=== PATIENT | female | born 1960 | race Caucasian/White ===

== ENCOUNTER 2019-06-16 08:56 | Day surgery (SDC) | payer MEDICAID ==
[~2019-06-16 08:56] MED LIST: Bupivacaine 0.25% 10 ML SDV ONE; Povidone-Iodine 10% Soln 118.25 ML Bottle ONE
[2019-06-16] MEDS ORDERED: ceFAZolin 2 GM in Premix Bag 1 BAG IV ONE (09:30)
[2019-06-16] MEDS ORDERED: Lactated Ringers 1,000 ML IV SCH (09:30)
[2019-06-16] MEDS: Nozin Nasal Sanitizer NASBOTH SCH ×2 (09:54→22:12)
[2019-06-16] MEDS ORDERED: Midazolam 1 MG/ML 2 ML SDV ONE (10:14)
[2019-06-16] MEDS ORDERED: fentaNYL 100 MCG/2 ML SDV ONE (10:14)
[2019-06-16] MEDS ORDERED: Propofol 200 MG/20 ML SDV ONE ×2 (10:14→13:39)
[2019-06-16] MEDS ORDERED: Magnesium Hydroxide 400 MG/5 ML Susp 30 ML Cup PO PRN (14:49)
[2019-06-16] MEDS ORDERED: Acetaminophen 325 MG Tab PO PRN (14:49)
[2019-06-16] MEDS ORDERED: Morphine 2 MG/ML SYRINGE IVPUSH PRN (14:49)
[2019-06-16] MEDS ORDERED: Acetaminophen/HYDROcodone 325-5 MG Tab PO PRN (14:49)
[2019-06-16] MEDS ORDERED: LORazepam 0.5 MG Tab PO PRN (14:56)
[2019-06-16] MEDS ORDERED: Lactated Ringers 1,000 ML ONE (14:57)
--- NOTE | 2019-06-16 15:54 | CR ---
Knee 1V or 2V Rt CLINICAL HISTORY: Postop FINDINGS: Patient has a lateral hemiprosthesis. Components appear well seated. There is intra-articular and subcutaneous air. Impression: Patient is status post hemiprosthesis in the lateral compartment
[2019-06-16] MEDS: Nicotine 14 MG/24 Hr Patch TRDERM SCH (16:37)
[2019-06-16] MEDS: Ketorolac 30 MG/ML SDV IVPUSH SCH ×2 (16:38→23:28)
[2019-06-16] MEDS: Acetaminophen/oxyCODONE 325-5 MG Tab PO PRN (17:10)
[2019-06-16] MEDS: Sodium Chloride 0.9% 1,000 ML IV SCH (18:07)
[2019-06-16] MEDS: ceFAZolin 1 GM in Premix Bag 1 BAG IV SCH (18:10)
[2019-06-16] MEDS ORDERED: atorvaSTATin 20 MG Tab PO SCH (21:00)
[2019-06-17] MEDS: Sodium Chloride 0.9% 1,000 ML IV SCH (02:26)
[2019-06-17] MEDS: ceFAZolin 1 GM in Premix Bag 1 BAG IV SCH ×2 (02:28→10:03)
[2019-06-17] MEDS: Ketorolac 30 MG/ML SDV IVPUSH SCH ×2 (07:29→16:25)
[2019-06-17] MEDS: Nozin Nasal Sanitizer NASBOTH SCH (08:53)
[2019-06-17] MEDS: Nicotine 14 MG/24 Hr Patch TRDERM SCH (08:54)
[2019-06-17] MEDS ORDERED: Aspirin 81 MG Tab.EC PO SCH (09:00)
[2019-06-17] MEDS ORDERED: amLODIPine 10 MG Tab PO SCH (09:00)
[2019-06-17] MEDS: Acetaminophen/oxyCODONE 325-5 MG Tab PO PRN ×2 (09:08→14:35)
[2019-06-18] MEDS ORDERED: atorvaSTATin 20 MG Tab PO SCH (09:00)
--- NOTE | 2019-06-25 18:20 | OR ---
DATE OF PROCEDURE: 06/16/2019 SURGEON: Hemant Camacho MD PREOPERATIVE DIAGNOSIS: Osteoarthritis, lateral compartment, right knee. POSTOPERATIVE DIAGNOSIS: Osteoarthritis, lateral compartment, right knee. PROCEDURE PERFORMED: Lateral unicompartmental arthroplasty, right knee, using ZUK components. ANESTHESIA: Spinal with sedation. INDICATIONS: Kady is a 58-year-old female who has been having progressive pain and valgus deformity of the right knee for the past 2 years. She previously sustained a work-related injury resulting in a partial lateral meniscectomy. Since that time, she has had progressive pain in the lateral aspect of the knee and valgus collapse. She now shows complete [id number] collapse in the lateral compartment with preservation of the patellofemoral and medial compartments. She now presents for a lateral unicompartmental arthroplasty. Risks, benefits, potential complications of the procedure were discussed. DESCRIPTION OF PROCEDURE: After adequate anesthesia was obtained, the patient was placed supine with a tourniquet about the right upper thigh. Right leg was prepped and draped in a sterile fashion. Leg was exsanguinated and tourniquet inflated to 300 mmHg. A longitudinal incision was made over the anterior aspect of the knee from the tibial tubercle to the superior pole of the patella. This was carried down to subcutaneous tissues. A lateral parapatellar arthrotomy was then performed. This was extended up into the quadriceps tendon enough to allow mobilization of the patella medially. Evaluation of the lateral compartment revealed a complete articular cartilage loss on the femoral condyle and bone-on- bone articulation with the tibia. The anterior horn of the lateral meniscus was excised and a small lip of bone was removed from the anterior tibia with an oscillating saw. The leg was extended and the extramedullary alignment jig was placed. This was aligned and then secured to the femur and tibia. Distal femoral cut was then made. This portion of the jig was removed and the knee was flexed, and the proximal tibia was resected with a combination of oscillating and reciprocating saws. The remainder of the jig was removed. The remnant of the lateral meniscus was then excised. The majority of the midbody and posterior horn were already absent. The femur was sized and the appropriate cutting jig was secured. The peg holes were drilled and remaining cuts were then made. Trial femoral component was placed with excellent fit. The tibia was sized, appropriate tibial tray was secured, and peg holes were drilled. Trial reduction was done with tibial inserts. Good balance was obtained in both flexion and extension. The trials were removed. The knee was then thoroughly irrigated with the pulse lavage. The bone surfaces were dried and components were cemented in place. Excess cement was removed. The knee was held in full extension with a trial insert and the spacer until the cement cured. The knee was again taken through range of motion and flexion and extension gaps evaluated. Approximately 2 mm of gap was present in both. The trial was removed. Knee was irrigated once again and the final polyethylene was snapped into position. The knee was then irrigated with a dilute Betadine solution followed by the pulse lavage. Knee was then closed with 0 Vicryl in a running fashion laterally. Skin was closed with 2-0 Vicryl and a running 3-0 Monocryl. Steri-Strips were applied. Light compressive dressing was then placed. The patient tolerated procedure very well, there were no complications, taken from the operating room in stable condition. Hemant Camacho MD /[id number] UBALDO
--- NOTE | 2019-07-16 11:11 | PCM.DCSUM1 ---
Discharge Summary - Hospital Course Free Text/Narrative:: 58 year old female admitted for right knee lateral unicompartmental arthroplasty Diagnosis: Stroke: No Modified [place] Scale: No Symptoms at All Modified [place] Scale Score: 0 - Discharge Data Discharge Date: 06/17/19 Discharge Disposition: Home, Self-Care 01 Condition: Good - Referral to Home Health Date of Face to Face Encounter: 06/17/19 Primary Care Physician: Ankit Sidhu MD - Discharge Diagnosis/Problem(s) (1) Status post right unicompartmental knee replacement SNOMED Code(s): 169605632, [id number], [id number], [id number] ICD Code: Z96.651 - PRESENCE OF RIGHT ARTIFICIAL KNEE JOINT Status: Acute Problem Details: lateral compartment (2) Osteoarthritis of right knee SNOMED Code(s): 992741347225153 ICD Code: M17.11 - UNILATERAL PRIMARY OSTEOARTHRITIS, RIGHT KNEE Status: Acute Qualifiers: Osteoarthritis type: post-traumatic - Patient Summary/Data Operative Procedure(s) Performed: Right knee lateral unicompartmental arthroplasty Consults: Consultations 06/16/19 14:50 Consult to Case Management/[employer] [CONS] Routine Comment: Physician Instructions: Service(s) to be Consulted: Case Management Reason for Consult: Plan for Discharge PT Evaluation and Treatment [CONS] Routine Please Evaluate and Treat. PT Reason for Consult: Post op Ortho Surgery Special Instructions: Ambulation and ROM This query below is only for informational purposes and is not editable. PT Evaluation and Treatment [CONS] Routine Please Evaluate and Treat. PT Reason for Consult: Post op Ortho Surgery Knee Pending Discharge: Yes, 1- 2 days Special Instructions: Schedule first outpatient PT appointment in 3-5 day post discharge. This query below is only for informational purposes and is not editable. Hospital Course: Tolerated surgery without complication, some difficulty with pain control initially but did well POD #1 and was able to progress well with PT on po medications. Was up in [place] and independent with walking and was safe for discharge to home. Aspirin at home for DVT prophylaxis. PT near home and follow up in two weeks. - Patient Instructions Diet: Usual Diet as Tolerated Activity: Apply Ice, As Tolerated, Full Weight Bearing Driving: Do Not Drive Showering/Bathing: May Shower Wound/Incision Care: Keep Operative Site/Wound Site Clean and Dry Notify Provider of: Fever, Increased Pain, Swelling and Redness, Drainage, Nausea and/or Vomiting - Discharge Plan *PRESCRIPTION DRUG MONITORING PROGRAM REVIEWED*: No *COPY OF PRESCRIPTION DRUG MONITORING REPORT IN PATIENT MATTHEW: No Prescriptions/Med Rec: oxyCODONE HCl/Acetaminophen [Oxycodone-Acetaminophen 5-325] 1 each PO Q4HR PRN # 40 tablet PRN Reason: Pain Home Medications: Home Meds Aspirin [Halfprin] 81 mg PO DAILY 07/31/18 [History] LORazepam 0.5 mg PO BID PRN 07/31/18 [History] amLODIPine Besylate [Amlodipine Besylate] 10 mg PO DAILY 07/31/18 [History] Naproxen [Naprosyn] 500 mg PO Q12HR PRN 30 Days #60 tab 12/16/18 [Rx] traMADol [Ultram] 50 mg PO Q6H PRN #28 tab 04/28/19 [Rx] Nicotine [Nicotine Patch] 1 each TD DAILY 06/16/19 [History] atorvaSTATin [Lipitor] 20 mg PO DAILY 06/16/19 [History] oxyCODONE HCl/Acetaminophen [Oxycodone-Acetaminophen 5-325] 1 each PO Q4HR PRN # 40 tablet 06/17/19 [Rx] traMADol [Ultram] 50 mg PO Q6H PRN 7 Days #28 tab 07/03/19 [Rx] Oxygen Therapy Mode: Room Air Patient Handouts: Knee Rehabilitation in the Home Referrals: Hemant Camacho MD [Physician] - 07/01/19 10:45 am ([facility]) - Discharge Summary/Plan Comment DC Time >30 min.: No - General Info Functional Status: Reports: Pain Controlled, Tolerating Diet, Ambulating, Urinating - Review of Systems General: Reports: No Symptoms HEENT: Reports: No Symptoms Pulmonary: Reports: No Symptoms Cardiovascular: Reports: No Symptoms Gastrointestinal: Reports: No Symptoms Genitourinary: Reports: No Symptoms Musculoskeletal: Reports: Joint Swelling Skin: Reports: No Symptoms Neurological: Reports: No Symptoms Psychiatric: Reports: No Symptoms - Patient Data Vitals - Most Recent: Last Vital Signs Temp 36.9 C 06/17/19 15:00 Pulse 83 06/17/19 15:00 Resp 18 06/17/19 15:00 BP 152/67 H 06/17/19 15:00 Pulse Ox 92 L 06/17/19 15:00 Weight - Most Recent: 58.967 kg Med Orders - Current: Current Medications Discontinued Medications Acetaminophen (Tylenol) 650 mg PO Q4H PRN PRN Reason: Pain/Fever Hydrocodone Bitart/Acetaminophen ([place] 325-5 Mg) 1 tab PO Q3H PRN PRN Reason: Pain (mild 1-3) Amlodipine Besylate (Norvasc) 10 mg PO DAILY [facility] Last Admin: 06/17/19 08:53 Dose: 10 mg Aspirin (Halfprin) 81 mg PO DAILY [facility] Last Admin: 06/17/19 08:52 Dose: 81 mg Atorvastatin Calcium (Lipitor) 20 mg PO BEDTIME [facility] Last Admin: 06/16/19 22:13 Dose: 20 mg Atorvastatin Calcium (Lipitor) 20 mg PO DAILY [facility] Bandage/Support Products ( Nasal [employer]) 1 applic NASBOTH BID [facility] Last Admin: 06/17/19 08:53 Dose: 1 applic Bupivacaine HCl (Sensorcaine-Mpf 0.25%) Confirm Administered Dose 10 ml .ROUTE .STK-MED ONE Stop: 06/16/19 06:43 Fentanyl (Sublimaze) Confirm Administered Dose 100 mcg .ROUTE .STK-MED ONE Stop: 06/16/19 10:15 Cefazolin Sodium/Dextrose 2 gm (/ Premix) 50 mls @ 100 mls/hr IV ONETIME ONE Stop: 06/16/19 09:59 Last Admin: 06/16/19 12:19 Dose: 100 mls/hr Lactated Ringer's (Ringers, Lactated) 1,000 mls @ 75 mls/hr IV ASDIRECTED [facility] Last Admin: 06/16/19 09:55 Dose: 75 mls/hr Cefazolin Sodium/Dextrose 1 gm (/ Premix) 50 mls @ 200 mls/hr IV Q8H [facility] Stop: 06/17/19 10:14 Last Admin: 06/17/19 10:03 Dose: 200 mls/hr Sodium Chloride (Normal Saline) 1,000 mls @ 125 mls/hr IV ASDIRECTED [facility] Last Admin: 06/17/19 02:26 Dose: 125 mls/hr Lactated Ringer's (Ringers, Lactated) Confirm Administered Dose 1,000 mls @ as directed .ROUTE .STK-MED ONE Stop: 06/16/19 14:58 Ketorolac Tromethamine (Toradol) 15 mg IVPUSH Q8H [facility] Stop: 06/17/19 16:01 Last Admin: 06/17/19 16:25 Dose: 15 mg Lorazepam (Ativan) 0.5 mg PO BID PRN PRN Reason: Anxiety Magnesium Hydroxide (Milk Of Magnesia) 30 ml PO BID PRN PRN Reason: Constipation Midazolam HCl (Versed 1 Mg/Ml) Confirm Administered Dose 2 mg .ROUTE .STK-MED ONE Stop: 06/16/19 10:15 Morphine Sulfate (Morphine) 2 mg IVPUSH Q1H PRN PRN Reason: Breakthrough Pain Nicotine (Habitrol) 14 mg TRDERM DAILY [facility] Last Admin: 06/17/19 08:54 Dose: 14 mg Oxycodone/Acetaminophen (Percocet 325-5 Mg) 2 tab PO Q4H PRN PRN Reason: Pain (moderate 4-6) Last Admin: 06/17/19 14:35 Dose: 2 tab Povidone Iodine (Betadine 10% Soln) Confirm Administered Dose 1 ml .ROUTE .STK- MED ONE Stop: 06/16/19 06:43 Last Admin: 06/16/19 13:53 Dose: 40 ml Propofol (Diprivan 20 Ml) Confirm Administered Dose 200 mg .ROUTE .STK-MED ONE Stop: 06/16/19 10:15 Propofol (Diprivan 20 Ml) Confirm Administered Dose 200 mg .ROUTE .STK-MED ONE Stop: 06/16/19 13:40 - Exam General: Reports: Alert, Oriented HEENT: Reports: Pupils Equal, Pupils Reactive, EOMI, Mucous Membr. Moist/[place] Neck: Reports: Supple Lungs: Reports: Clear to Auscultation, Normal Respiratory Effort Cardiovascular: Reports: Regular Rate, Regular Rhythm GI/Abdominal Exam: Normal Bowel Sounds, Soft, Non-Tender, No Distention (Female) Exam: Deferred Rectal (Female) Exam: Deferred Back Exam: Reports: Normal Inspection Extremities: Joint Swelling, Limited Range of Motion Skin: Reports: Warm, Dry Wound/Incisions: Reports: Healing Well, No Drainage Neurological: Reports: No New Focal Deficit Psy/Mental Status: Reports: Alert, Normal Affect, Normal Mood
== END 2019-06-17 20:05 | disposition home or self-care (01) ==
LOC: JP.SDS 08:56 → JP.MS 12:55 → JP.SDS 06-17 20:05
PROVIDERS: ATTEND Specialist
DX: M17.11 Unilateral primary osteoarthritis, right knee (principal); I10 Essential (primary) hypertension; F17.210 Nicotine dependence, cigarettes, uncomplicated; Z79.82 Long term (current) use of aspirin; Z79.899 Other long term (current) drug therapy
CPT/HCPCS: 27446; 36415; 73560; 80053; 85027; 97110; 97162; 97530; 97535; A9270; C1713; C1776; J0690; J1885; J2250; J2704; J3010; J7030; J7120; J3490